=== PATIENT | male | born 2000 | race Native Hawaiian/Other Pacific Islander ===

== ENCOUNTER 2021-01-17 18:21 | Emergency (ER) | payer OTHER ==
[~2021-01-17] VITALS: Ht 182.9 cm; Wt 113.4 kg
[2021-01-17 19:58] VITALS: BP 143/82; TEMP 99.1
== END 2021-01-17 19:58 | disposition home or self-care (01) ==
LOC: ED 18:21
PROC: 0HQFXZZ Repair Right Hand Skin, External Approach (ICD-10-PCS; principal; 2021-01-17)
DX: S61.214A Laceration without foreign body of right ring finger without damage to nail, initial encounter (principal); W31.82XA Contact with other commercial machinery, initial encounter; Y92.512 Supermarket, store or market as the place of occurrence of the external cause
CPT/HCPCS: 90715; 99283

== ENCOUNTER 2022-11-16 10:25 | Outpatient (CLI) | payer OTHER | END 2022-11-16 20:45 | disposition home or self-care (01) | LOC: RAD 10:25 | PROVIDERS: ATTEND Nurse Practitioner Family | DX: M54.89 Other dorsalgia (principal) ==